=== PATIENT | female | born 2000 | race African-American/Black ===

== ENCOUNTER 2025-01-12 07:34 | Emergency (ER) | payer OTHER ==
[~2025-01-12] VITALS: Ht 162.6 cm; Wt 59.0 kg
[2025-01-12 07:37] VITALS: TEMP 37; O2SAT 99
[2025-01-12] MEDS: SODIUM CHLORIDE 0.9% 1,000 ML IV ONE ×2 (08:04→12:23)
[2025-01-12] MEDS: ONDANSETRON HCL 4MG/2ML INJ IV STA ×2 (08:04→12:23)
[2025-01-12 08:22] LABS: BASOPHILS % 0.3 % (0.0-2.0); EOSINOPHILS % 0.1 % (0.0-5.0); HEMATOCRIT. 37.4 % (36.0-48.0); HEMOGLOBIN. 12.3 g/dL (12.0-16.0); LYMPHOCYTES % 9.7 % (20.0-50.0); MEAN CORPUSCULAR HEMOGLOBIN 28.8 pg (28.0-32.0); MEAN CORPUSCULAR HGB CONC 32.8 g/dL (31.0-37.0); MEAN CORPUSCULAR VOLUME 87.7 fL (81.0-99.0); MEAN PLATELET VOLUME 7.7 fl (7.4-10.4); MONOCYTES % 4.1 % (2.0-8.0); NEUTROPHILS % 85.8 % (40.0-76.0); PLATELET 266 x1000/uL (130-400); RED BLOOD CELL COUNT 4.27 mill/uL (4.2-5.4); RED CELL DISTRIBUTION WIDTH 13.9 % (11.6-14.6); WHITE BLOOD COUNT 16.7 x1000/uL (4.5-11.0)
[2025-01-12 08:30] LABS: CARBON DIOXIDE 25 mEq/L (21-32); CHLORIDE 105 mEq/L (98-107); POTASSIUM 3.3 mEq/L (3.5-5.1); SODIUM 141 mEq/L (136-145)
[2025-01-12 08:31] LABS: CALCIUM 9.4 mg/dL (8.7-10.4)
[2025-01-12 08:36] LABS: CREATININE 0.9 mg/dL (0.6-1.0); ETHANOL BLOOD < 10 mg/dL (<10); GLUCOSE 175 mg/dL (70-105); HCG SCREEN NEGATIVE; UREA NITROGEN BLOOD 16 mg/dL (9-23)
[2025-01-12 08:37] LABS: ALANINE AMINOTRANSFERASE 10 IU/L (10-49); ASPARTATE AMINOTRANSFERASE 16 IU/L (<34)
[2025-01-12 08:38] LABS: ALBUMIN 4.6 g/dL (3.2-4.8); BILIRUBIN DIRECT 0.1 mg/dL (<=3.0); BILIRUBIN TOTAL 0.5 mg/dL (0.1-1.0); PROTEIN TOTAL 7.3 g/dL (6.0-8.3)
[2025-01-12 10:24] LABS: CLARITY URINE CLEAR (CLEAR); COLOR URINE YELLOW (YELLOW); GLUCOSE URINE NEGATIVE (NEGATIVE); KETONES URINE 3+ (NEGATIVE); LEUKOCYTE ESTERASE URINE NEGATIVE (NEGATIVE); NITRITE URINE NEGATIVE (NEGATIVE); OCCULT BLOOD URINE NEGATIVE (NEGATIVE); PH URINE 7.5 (4.5-8.0); PROTEIN URINE 1+ (NEGATIVE); SPECIFIC GRAVITY URINE 1.024 (1.005-1.030); UROBILINOGEN URINE 0.2 E.U./dL (0.2-1.0)
[2025-01-12 10:39] LABS: BACTERIA URINE 3+; MUCUS URINE 2+ /lpf (< = 2+); SQUAMOUS EPITHELIAL CELL URINE 1+ /lpf (RARE/1+); YEAST URINE NONE SEEN
[2025-01-12] MEDS: SODIUM CHLORIDE 0.9% 500 ML IV ONE (10:41)
[2025-01-12] MEDS: KETOROLAC 15MG/ML VIAL IV ONE (10:41)
[2025-01-12] MEDS: TAMSULOSIN HCL 0.4MG SR CAPSULE PO ONE (10:41)
[2025-01-12 10:50] LABS: *AMPHETAMINES SCREEN URINE NEGATIVE (NEGATIVE); *BARBITURATES SCREEN URINE NEGATIVE (NEGATIVE); *BENZODIAZEPINES SCREEN URINE NEGATIVE (NEGATIVE); *COCAINE SCREEN URINE NEGATIVE (NEGATIVE); CANNABINOID URINE SCREEN PRESUMPTIVE POSITIVE (NEGATIVE); ECSTASY MDMA SCREEN URINE NEGATIVE (NEGATIVE); METHADONE URINE SCREEN NEGATIVE (NEGATIVE); OPIATES URINE SCREEN NEGATIVE (NEGATIVE); PHENCYCLIDINE URINE SCREEN NEGATIVE (NEGATIVE)
[2025-01-12] MEDS: MORPHINE SULFATE 4 MG/ML INJ (FOR IV/IM USE) IV STA (12:22)
[2025-01-12] MEDS: HALOPERIDOL LACTATE 5MG/ML VIAL IM ONE (13:06)
[2025-01-12 14:20] VITALS: BP 84/51; PULSE 61; RESP 18; O2SAT 100
== END 2025-01-12 14:53 | disposition short-term general hospital (02) ==
LOC: ER 07:34 → CANBEDREQ 12:38 → ER 14:53
DX: R10.84 Generalized abdominal pain (principal); R11.2 Nausea with vomiting, unspecified; F41.9 Anxiety disorder, unspecified; Z79.899 Other long term (current) drug therapy
CPT/HCPCS: 80076; 80305; 80048; 81003; 80320; 84703; 83690; 85025; 36415; 74176; 96361; 96372; 96374; 96375; 96376; 99285; J1630; J1885; J2405; J2270; J7040; J7030; G0480